=== PATIENT | female | born 2000 ===

== ENCOUNTER 2020-03-29 22:07 | Inpatient (IN) ==
[2020-03-29 22:43] LABS: Apearance,Urine Slightly Hazy (Clear); Bacteria,Urine Occasional /HPF (Few); Bilirubin,Urine Negative (Negative); Blood, Urine Small mg/dL (Negative); Glucose,Urine (UA) Negative (Negative); Ketones,Urine Negative (Negative); Mucus,Urine Occasional /LPF (Occasional); Nitrite,Urine Negative (Negative); Protein,Urine Negative; RBC,Urine 3 /HPF (0-4); Squamous Epithelial Cell,Urine Occasional /HPF (0-10); Urine Color Yellow (Yellow); Urine Specific Gravity 1.012 (1.001-1.035); Urine Urobilinogen < 2.0 EU/DL (0.2-1.0); WBC,Urine 11 /HPF (0-6)
[2020-03-29] MEDS ORDERED: ONDANSETRON 4 MG/2 ML VIAL IV ONE (23:04)
[2020-03-29] MEDS ORDERED: MEPERIDINE 25 MG/1 ML VIAL IV ONE (23:05)
[2020-03-29] MEDS: LACTATED RINGERS 1,000 ML IV SCH (23:08)
[2020-03-30] MEDS: ACETAMINOPHEN 500 MG TABLET PO PRN ×2 (00:41→06:23)
[2020-03-30] MEDS ORDERED: MEPERIDINE 50 MG/1 ML VIAL IV PRN (00:53)
[2020-03-30 01:22] LABS: Basophils % 0.2 % (0.0-0.8); Hematocrit 36.8 VOL% (35.7-47.0); Hemoglobin 11.8 GM/DL (12.0-16.0); Lymphocytes # 0.9 10*3/uL (1.4-4.0); Lymphocytes % 4.6 % (21.3-54.2); Mean Corpuscular HGB Conc 32.1 GM/DL (32-36); Mean Corpuscular Volume 83.8 FL (87-102); Mean Platelet Volume 13.1 FL (9.6-12.0); Monocytes % 5.9 % (1.7-12.7); NRBC # 0.03 10*3/uL; Neutrophils % 88.3 % (38.7-73.9); Platelet Count 136 T/CUMM (130-400); Red Blood Count 4.39 MC/CUMM (3.8-5.5); Red Cell Distribution Width 14.6 % (9.3-17.3); White Blood Count 19.9 T/CUMM (4-12)
[2020-03-30 01:50] LABS: Albumin 2.4 G/DL (3.4-5.0); Bilirubin,Total 0.5 MG/DL (0.2-1.0); Calcium 8.9 MG/DL (8.5-10.1); Osmolality,Calculated 266.2 MOS/KG (273-304); Total Protein 6.8 G/DL (6.4-8.3)
[2020-03-30] MEDS: LACTATED RINGERS 1,000 ML IV SCH ×2 (02:21→08:14)
[2020-03-30 03:19] LABS: Hepatitis B Surface Ag Quant < 0.10 Index; Hepatitis B Surface Ag Result Negative (Negative)
[2020-03-30] MEDS ORDERED: CITRIC ACID/SODIUM CITRATE 30 ML UDCUP PO ONE (03:35)
[2020-03-30] MEDS ORDERED: FAMOTIDINE 20 MG/2 ML VIAL IV ONE (03:35)
[2020-03-30] MEDS ORDERED: LACTATED RINGERS 1,000 ML IV ONE (03:35)
[2020-03-30] MEDS ORDERED: ePHEDrine 50 MG/ML VIAL IV PRN (03:35)
[2020-03-30] MEDS ORDERED: hydrOXYzine HCL 25 MG/1 ML VIAL IM PRN (03:36)
[2020-03-30] MEDS ORDERED: diphenhydrAMINE 50 MG/1 ML VIAL IV PRN ×2 (03:36)
[2020-03-30] MEDS ORDERED: NALOXONE 0.4 MG/ML VIAL IV PRN (03:36)
[2020-03-30] MEDS ORDERED: PROMETHAZINE 25 MG/1 ML VIAL IM ONE (03:36)
[2020-03-30 03:56] LABS: HIV Antigen/Antibody Result Nonreactive (Nonreactive)
[2020-03-30] MEDS ORDERED: fentaNYL 2 MCG/ROPIV 0.2% EPID 100 ML EPIDURAL SCH (04:00)
[2020-03-30 06:09] LABS: Band Neutrophils 2 % (0-10); Lymphocytes 5 % (20-55); Segmented Neutrophils 90 % (50-85); Total Cells Counted 100
[2020-03-30 06:10] LABS: Anisocytosis 1+; Platelet Estimate Adequate
[2020-03-30 06:41] LABS: Apearance,Urine Slightly Hazy (Clear); Bilirubin,Urine Negative (Negative); Blood, Urine Negative (Negative); Glucose,Urine (UA) Negative (Negative); Ketones,Urine 20 mg/dL (Negative); Mucus,Urine Many /LPF (Occasional); Nitrite,Urine Negative (Negative); Protein,Urine 100 MG/DL; RBC,Urine 2 /HPF (0-4); Squamous Epithelial Cell,Urine Occasional /HPF (0-10); Urine Color Amber (Yellow); Urine Specific Gravity 1.031 (1.001-1.035); Urine Urobilinogen < 2.0 EU/DL (0.2-1.0); WBC,Urine 1 /HPF (0-6)
[2020-03-30] MEDS ORDERED: CARBOPROST TROMETHAMINE 250 MCG/ML AMP IM ONE (07:36)
[2020-03-30] MEDS ORDERED: OXYTOCIN/LR 20 UNIT/1,000 ML BAG IV ONE ×2 (07:36→13:10)
[2020-03-30] MEDS ORDERED: METHYLERGONOVINE 0.2 MG/1 ML AMP ONE (07:36)
[2020-03-30] MEDS ORDERED: TRANEXAMIC ACID 1,000 MG/10 ML VIAL ONE (07:36)
[2020-03-30] MEDS ORDERED: miSOPROStoL 200 MCG TABLET ONE (07:36)
[2020-03-30] MEDS ORDERED: LIDOCAINE 1% 50 ML VIAL ONE (07:37)
[2020-03-30] MEDS: AMPICILLIN INJ 2,000 MG in SODIUM CHLORIDE 0.9% 100 ML IV SCH ×2 (08:14→12:30)
[2020-03-30] MEDS ORDERED: BUTORPHANOL 1 MG/ML VIAL ONE (09:03)
[2020-03-30] MEDS ORDERED: OXYTOCIN 20 UNIT in SODIUM CHLORIDE 0.9% 1,000 ML IV SCH (10:00)
[2020-03-30 12:28] LABS: Cord Venous Blood HCO3 13.7 MMOL/L; Cord Venous Blood PCO2 76.8 MMHG; Cord Venous Blood PO2 17.1
[2020-03-30] MEDS ORDERED: OXYTOCIN 20 UNIT in SODIUM CHLORIDE 0.9% 1,000 ML IV ONE ×2 (13:16→14:43)
[2020-03-30] MEDS ORDERED: LANOLIN 50% CREAM 0.3 OZ TUBE TOP PRN (14:43)
[2020-03-30] MEDS ORDERED: MEASLES/MUMPS/RUBELLA VACCINE 0.5 ML VIAL SUBCUT ONE (14:43)
[2020-03-30] MEDS ORDERED: DIPH/TET/ACEL PERT BOOSTER VACCINE 0.5 ML VIAL IM ONE (14:43)
[2020-03-30] MEDS ORDERED: HYDROCORTISONE 2.5% RECTAL CREAM 30 GM TUBE TOP PRN (14:43)
[2020-03-30] MEDS ORDERED: oxyCODONE/ACETAMINOPHEN 5-325 MG TABLET PO PRN (14:43)
[2020-03-30] MEDS ORDERED: BISACODYL 10 MG SUPP RECTAL PRN (14:43)
[2020-03-30] MEDS ORDERED: RHO(D) IMMUNE GLOBULIN 300 MCG SYRINGE IM ONE (14:43)
[2020-03-30] MEDS ORDERED: ACETAMINOPHEN 325 MG TABLET PO PRN (14:43)
[2020-03-30] MEDS ORDERED: WITCH HAZEL PADS 100/JAR TOP PRN (14:43)
[2020-03-30] MEDS ORDERED: BENZOCAINE 20%/MENTHOL 0.5% SPRAY 56 GM CAN TOP PRN (14:43)
[2020-03-30] MEDS: oxyCODONE/ACETAMINOPHEN 5-325 MG TABLET PO PRN (17:20)
[2020-03-30] MEDS: IBUPROFEN 800 MG TABLET PO PRN (17:20)
[2020-03-30] MEDS: DOCUSATE SODIUM 100 MG CAPSULE PO SCH (22:04)
[2020-03-31 03:16] LABS: Basophils # 0.1 10*3/uL (0.0-0.2); Basophils % 0.3 % (0.0-0.8); Eosinophils % 0.1 % (0.00-10.9); Hematocrit 29.5 VOL% (35.7-47.0); Hemoglobin 9.4 GM/DL (12.0-16.0); Immature Granulocytes % 1.6 %; Immature Granulocytes Absolute 0.44 #; Lymphocytes # 3.1 10*3/uL (1.4-4.0); Lymphocytes % 11.3 % (21.3-54.2); Mean Corpuscular HGB Conc 31.9 GM/DL (32-36); Mean Platelet Volume 12.6 FL (9.6-12.0); Monocytes % 6.5 % (1.7-12.7); NRBC # 0.03 10*3/uL; Neutrophils % 80.2 % (38.7-73.9); Platelet Count 133 T/CUMM (130-400); Red Blood Count 3.43 MC/CUMM (3.8-5.5); Red Cell Distribution Width 15.4 % (9.3-17.3); White Blood Count 27.7 T/CUMM (4-12)
[2020-03-31] MEDS: IBUPROFEN 800 MG TABLET PO PRN ×3 (03:26→19:17)
[2020-03-31] MEDS: oxyCODONE/ACETAMINOPHEN 5-325 MG TABLET PO PRN ×2 (03:26→19:17)
[2020-03-31 04:30] LABS: Band Neutrophils 10 % (0-10); Hypochromasia 1+; Lymphocytes 10 % (20-55); Microcytosis 2+; Nucleated Red Blood Cells 2 (0-5); Platelet Estimate Normal; Segmented Neutrophils 76 % (50-85); Total Cells Counted 100
[2020-03-31 04:31] LABS: Polychromasia Few
[2020-03-31] MEDS: DOCUSATE SODIUM 100 MG CAPSULE PO SCH ×2 (09:03→19:17)
[2020-04-01] MEDS: oxyCODONE/ACETAMINOPHEN 5-325 MG TABLET PO PRN (05:24)
[2020-04-01] MEDS: IBUPROFEN 800 MG TABLET PO PRN (05:24)
[2020-04-01 06:47] LABS: Basophils # 0.1 10*3/uL (0.0-0.2); Basophils % 0.3 % (0.0-0.8); Eosinophils % 0.2 % (0.00-10.9); Hematocrit 26.7 VOL% (35.7-47.0); Hemoglobin 8.4 GM/DL (12.0-16.0); Immature Granulocytes % 3.3 %; Immature Granulocytes Absolute 0.62 #; Lymphocytes # 2.2 10*3/uL (1.4-4.0); Lymphocytes % 11.6 % (21.3-54.2); Mean Corpuscular HGB Conc 31.5 GM/DL (32-36); Mean Corpuscular Volume 86.1 FL (87-102); Mean Platelet Volume 12.3 FL (9.6-12.0); Monocytes % 4.9 % (1.7-12.7); NRBC # 0.07 10*3/uL; Neutrophils % 79.7 % (38.7-73.9); Platelet Count 133 T/CUMM (130-400); Red Cell Distribution Width 15.6 % (9.3-17.3); White Blood Count 18.8 T/CUMM (4-12)
[2020-04-01 08:57] VITALS: BP 118/62
[2020-04-01] MEDS ORDERED: FERROUS SULFATE 325 MG TABLET PO SCH (09:00)
[2020-04-01] MEDS: DOCUSATE SODIUM 100 MG CAPSULE PO SCH (09:15)
[2020-04-01 12:53] LABS: Band Neutrophils 2 % (0-10); Lymphocytes 11 % (20-55); Segmented Neutrophils 86 % (50-85); Total Cells Counted 100
[2020-04-01 12:54] LABS: Platelet Estimate Adequate; Polychromasia Slight
[2020-04-01 12:55] LABS: Hypochromasia 2+; Ovalocytes Slight
== END 2020-04-01 11:30 | disposition home or self-care (01) | DRG 560 ==
LOC: N.LDOUT 22:07 → N.LD 22:10 → N.OB 03-30 14:45
PROVIDERS: ADMIT Obstetrics & Gynecology; ATTEND Obstetrics & Gynecology

== ENCOUNTER 2022-08-15 00:36 | Inpatient (IN) ==
[2022-08-15] MEDS ORDERED: TRANEXAMIC ACID 1,000 MG in SODIUM CHLORIDE 0.9% 100 ML IV PRN (01:55)
[2022-08-15] MEDS ORDERED: OXYTOCIN/LR 20 UNIT/1,000 ML BAG IV ONE (01:55)
[2022-08-15] MEDS ORDERED: METHYLERGONOVINE 0.2 MG/1 ML AMP IM PRN (01:55)
[2022-08-15] MEDS ORDERED: CARBOPROST TROMETHAMINE 250 MCG/ML AMP IM PRN (01:55)
[2022-08-15] MEDS ORDERED: BUTORPHANOL 2 MG/ML VIAL IV PRN (01:55)
[2022-08-15] MEDS ORDERED: miSOPROStoL 200 MCG TABLET RECTAL PRN (01:55)
[2022-08-15] MEDS ORDERED: ONDANSETRON 4 MG/2 ML VIAL IV PRN ×2 (01:55→13:08)
[2022-08-15] MEDS ORDERED: MEPERIDINE 25 MG/1 ML VIAL IV PRN (02:02)
[2022-08-15 02:26] LABS: Basophils % 0.4 % (0.0-0.8); Eosinophils % 0.4 % (0.00-10.9); Hematocrit 33.7 VOL% (35.7-47.0); Hemoglobin 10.8 GM/DL (12.0-16.0); Immature Granulocytes % 1.1 %; Lymphocytes # 2.7 10*3/uL (1.4-4.0); Lymphocytes % 29.4 % (21.3-54.2); Mean Corpuscular Volume 80.6 FL (87-102); Mean Platelet Volume 14.3 FL (9.6-12.0); Monocytes # 0.6 10*3/uL (0.11-0.8); Monocytes % 6.4 % (1.7-12.7); Neutrophils % 62.3 % (38.7-73.9); Platelet Count 159 T/CUMM (130-400); Red Blood Count 4.18 MC/CUMM (3.8-5.5); Red Cell Distribution Width 15.6 % (9.3-17.3); White Blood Count 9.3 T/CUMM (4-12)
[2022-08-15] MEDS ORDERED: AMPICILLIN INJ 2,000 MG in SODIUM CHLORIDE 0.9% 100 ML IV ONE (02:30)
[2022-08-15 02:46] LABS: Alanine Aminotransferase 39 U/L (13-56); Albumin 2.4 G/DL (3.4-5.0); Alkaline Phosphatase 153 U/L (45-117); Aspartate Amino Transferase 33 U/L (0-37); Bilirubin,Total < 0.39 MG/DL (0.20-1.00); Blood Urea Nitrogen 10 MG/DL (7-18); Calcium 8.6 MG/DL (8.5-10.1); Carbon Dioxide 20 MMOL/L (21-32); Chloride 116 MMOL/L (98-107); Glucose 79 MG/DL (74-106); Sodium 143 MMOL/L (136-145); Total Protein 6.6 G/DL (6.4-8.2)
[2022-08-15] MEDS: LACTATED RINGERS 1,000 ML IV SCH ×3 (03:01→13:06)
[2022-08-15] MEDS ORDERED: LACTATED RINGERS 1,000 ML IV SCH (04:30)
[2022-08-15] MEDS ORDERED: ePHEDrine 50 MG/ML VIAL IV PRN (04:30)
[2022-08-15] MEDS ORDERED: NALOXONE 0.4 MG/ML VIAL IV PRN (04:30)
[2022-08-15] MEDS ORDERED: diphenhydrAMINE 50 MG/1 ML VIAL IV PRN ×2 (04:30)
[2022-08-15] MEDS ORDERED: fentaNYL 2 MCG/ROPIV 0.2% EPID 100 ML EPIDURAL SCH (04:30)
[2022-08-15] MEDS ORDERED: CITRIC ACID/SODIUM CITRATE 30 ML UDCUP PO ONE (04:31)
[2022-08-15] MEDS ORDERED: FAMOTIDINE 20 MG/2 ML VIAL IV ONE ×2 (04:31→04:46)
[2022-08-15] MEDS ORDERED: CITRIC ACID/SODIUM CITRATE 30 ML UDCUP ONE (04:43)
[2022-08-15] MEDS ORDERED: ePHEDrine 50 MG/ML VIAL ONE (04:44)
[2022-08-15] MEDS ORDERED: fentaNYL 2 MCG/ROPIV 0.2% EPID 100 ML EPIDURAL ONE (04:46)
[2022-08-15] MEDS ORDERED: OXYTOCIN/LR 20 UNIT/1,000 ML BAG IV SCH (05:00)
[2022-08-15] MEDS: AMPICILLIN INJ 1,000 MG in SODIUM CHLORIDE 0.9% 100 ML IV SCH ×2 (06:12→13:04)
[2022-08-15] MEDS ORDERED: fentaNYL 100 MCG/2 ML VIAL ONE (07:01)
[2022-08-15] MEDS ORDERED: miSOPROStoL 200 MCG TABLET ONE (07:07)
[2022-08-15] MEDS ORDERED: CARBOPROST TROMETHAMINE 250 MCG/ML AMP IM ONE (07:08)
[2022-08-15] MEDS ORDERED: METHYLERGONOVINE 0.2 MG/1 ML AMP ONE (07:08)
[2022-08-15] MEDS ORDERED: TRANEXAMIC ACID 1,000 MG/10 ML VIAL ONE (07:08)
[2022-08-15] MEDS ORDERED: SODIUM CHLORIDE 0.9% 0 ML IV ONE (07:08)
[2022-08-15] MEDS ORDERED: OXYTOCIN/LR 0 UNIT/0 ML BAG IV ONE (07:08)
[2022-08-15 07:10] LABS: Bacteria,Urine Occasional /HPF (Few); Bilirubin,Urine Negative (Negative); Blood, Urine Negative (Negative); Glucose,Urine (UA) Negative (Negative); Ketones,Urine Negative (Negative); Nitrite,Urine Negative (Negative); Protein,Urine Negative (Negative); RBC,Urine <1 /HPF (0-4); Squamous Epithelial Cell,Urine Occasional /HPF (0-10); Urine Appearance CLEAR (Clear); Urine Color Yellow (Yellow); Urine Specific Gravity 1.009 (1.001-1.035); Urine Urobilinogen < 2.0 eU/dL (<2.0)
[2022-08-15 08:01] LABS: Cord Venous Blood HCO3 17.8 MMOL/L; Cord Venous Blood PO2 27.8
[2022-08-15] MEDS ORDERED: IBUPROFEN 800 MG TABLET PO ONE (08:21)
[2022-08-15] MEDS ORDERED: RHO(D) IMMUNE GLOBULIN 300 MCG SYRINGE IM ONE (13:08)
[2022-08-15] MEDS ORDERED: ACETAMINOPHEN 325 MG TABLET PO PRN (13:08)
[2022-08-15] MEDS ORDERED: WITCH HAZEL PADS 100/JAR TOP PRN (13:08)
[2022-08-15] MEDS ORDERED: LANOLIN 50% CREAM 0.3 OZ TUBE TOP PRN (13:08)
[2022-08-15] MEDS ORDERED: oxyCODONE/ACETAMINOPHEN 5-325 MG TABLET PO PRN ×2 (13:08)
[2022-08-15] MEDS ORDERED: BENZOCAINE 20%/MENTHOL 0.5% SPRAY 56 GM CAN TOP PRN (13:08)
[2022-08-15] MEDS ORDERED: DIPH/TET/ACEL PERT BOOSTER VACCINE 0.5 ML VIAL IM ONE (13:08)
[2022-08-15] MEDS ORDERED: MEASLES/MUMPS/RUBELLA VACCINE 0.5 ML VIAL SUBCUT ONE (13:08)
[2022-08-15] MEDS ORDERED: BISACODYL 10 MG SUPP RECTAL PRN (13:08)
[2022-08-15] MEDS ORDERED: HYDROCORTISONE 2.5% RECTAL CREAM 30 GM TUBE TOP PRN (13:08)
[2022-08-15] MEDS: IBUPROFEN 800 MG TABLET PO PRN (18:58)
[2022-08-15] MEDS: DOCUSATE SODIUM 100 MG CAPSULE PO SCH (21:18)
[2022-08-16 06:05] LABS: Basophils % 0.4 % (0.0-0.8); Eosinophils # 0.1 10*3/uL (0.0-0.87); Eosinophils % 0.6 % (0.00-10.9); Hematocrit 28.8 VOL% (35.7-47.0); Immature Granulocytes % 1.1 %; Immature Granulocytes Absolute 0.12 #; Lymphocytes # 3.4 10*3/uL (1.4-4.0); Lymphocytes % 31.2 % (21.3-54.2); Mean Corpuscular HGB Conc 31.3 GM/DL (32-36); Mean Corpuscular Volume 82.1 FL (87-102); Mean Platelet Volume 13.3 FL (9.6-12.0); Monocytes # 0.6 10*3/uL (0.11-0.8); Monocytes % 5.7 % (1.7-12.7); Platelet Count 117 T/CUMM (130-400); Red Blood Count 3.51 MC/CUMM (3.8-5.5); Red Cell Distribution Width 15.9 % (9.3-17.3); White Blood Count 10.9 T/CUMM (4-12)
[2022-08-16 06:32] LABS: Hypochromia Slight; Microcytosis Slight
[2022-08-16] MEDS: DOCUSATE SODIUM 100 MG CAPSULE PO SCH ×2 (09:55→21:47)
[2022-08-16] MEDS: IBUPROFEN 800 MG TABLET PO PRN ×2 (09:55→21:50)
[2022-08-17] MEDS: DOCUSATE SODIUM 100 MG CAPSULE PO SCH (08:42)
[2022-08-17 15:11] VITALS: BP 134/86
== END 2022-08-17 12:55 | disposition home or self-care (01) | DRG 560 ==
LOC: N.LDOUT 00:36 → N.LD 00:38 → N.OB 13:38
PROVIDERS: ADMIT Obstetrics & Gynecology; ATTEND Obstetrics & Gynecology